=== PATIENT | female | born 1955 | race Asian ===

== ENCOUNTER 2019-10-04 07:06 | Emergency (ER) | payer MEDICARE, MEDICAID ==
[~2019-10-04] VITALS: Ht 162.6 cm; Wt 63.5 kg
[~2019-10-04 07:06] MED LIST: ALPR0.254 PO; LAM100T PO; PRE5T PO
[2019-10-04] MEDS ORDERED: ONDANSETRON HCL 4 MG/2 ML VIAL IV ONE (07:15)
[2019-10-04 07:41] LABS: Basophils # (auto) 0 uL; Basophils % (auto) 0.1 % (0.0-2.0); Eosinophils # (auto) 0 uL; Eosinophils % (auto) 0.1 % (0.0-7.0); Hematocrit 42.6 % (36.0-46.0); Hemoglobin 14.7 g/dL (12.2-16.2); Lymphocytes # (auto) 1.2 uL; Lymphocytes % (auto) 10.5 % (10.0-50.0); Mean Corpuscular Hemoglobin 31.7 pg (28.0-32.0); Mean Corpuscular Hgb Conc. 34.5 g/dL (32.0-36.0); Monocytes # (auto) 0.7 uL; Monocytes % (auto) 6.1 % (0.0-12.0); Neutrophils # (auto) 9.6 uL; Neutrophils % (auto) 83.2 % (37.0-80.0); Platelet Count (auto) 414 10^3/uL (140-450); Red Blood Cells 4.63 10^6/uL (4.0-5.20); Red Cell Distribution Width 12.6 % (11.8-14.3); White Blood Cell 11.6 10^3/uL (4.4-10.8)
[2019-10-04 07:56] LABS: INR 0.98 (0.9-1.15); Partial Thromboplastin Time 26.8 sec (23.64-32.05)
[2019-10-04 08:09] LABS: Albumin 4.2 g/dL (3.4-5.0); Anion Gap 8 (5-15); BUN/Creatinine Ratio 8.3; Blood Alcohol < 3.0 mg/dL (0-5); Blood Urea Nitrogen 6 mg/dL (7-18); Calcium 8.9 mg/dL (8.5-10.1); Carbon Dioxide 26 mmol/L (21-32); Chloride 91 mmol/L (98-107); GFR African American 105 mL/min; GFR Non-African American 86 mL/min; Glucose 141 mg/dL (74-106); Potassium 3.6 mmol/L (3.5-5.1); Salicylate < 1.7 mg/dL (2.8-20.0); Sodium 125 mmol/L (136-145)
[2019-10-04 08:10] LABS: Acetaminophen < 2.0 ug/mL (10-30)
[2019-10-04 08:14] LABS: Alanine Aminotransferase 20 U/L (13-56); Alkaline Phosphatase 97 U/L (45-117); Aspartate Aminotransferase 16 U/L (15-37); Bilirubin, Total 0.3 mg/dL (0.2-1.0); Total Protein 8.1 g/dL (6.4-8.2)
[2019-10-04] MEDS ORDERED: SODIUM CHLORIDE 0.9% 1,000 ML IV ONE ×2 (08:30→10:30)
[2019-10-04 09:25] LABS: Urine WBC None Seen /hpf (0 - 5)
[2019-10-04 09:45] LABS: Urine Bacteria NONE SEEN /hpf (None Seen); Urine Blood Negative /uL (Negative); Urine Specific Gravity 1.007 (1.001-1.035)
[2019-10-04 10:07] LABS: Alcohol, Urine < 3.0 mg/dL (0-5); Amphetamine Screen, Urine NEGATIVE (NEGATIVE); Barbiturate Scree,Urine NEGATIVE (NEGATIVE); Benzodiazephine Screen, Urine NEGATIVE (NEGATIVE); Cannabinoid Screen, Urine NEGATIVE (NEGATIVE); Cocaine Screen, Urine NEGATIVE (NEGATIVE); Opiate Scree,Urine NEGATIVE (NEGATIVE); Phencyclidine Screen, Urine NEGATIVE (NEGATIVE)
[2019-10-04 16:55] VITALS: BP 124/67
== END 2019-10-04 16:54 | disposition home or self-care (01) ==
LOC: EDBD 07:06 → ER 07:06
DX: R41.82 Altered mental status, unspecified (principal); T42.6X5A Adverse effect of other antiepileptic and sedative-hypnotic drugs, initial encounter; R11.2 Nausea with vomiting, unspecified; G92 Toxic encephalopathy; E78.5 Hyperlipidemia, unspecified; I10 Essential (primary) hypertension; Z88.6 Allergy status to analgesic agent; Y92.9 Unspecified place or not applicable
CPT/HCPCS: 36415; 70450; 71045; 80053; 80307; 80320; 80329; 81001; 83735; 84484; 85025; 85610; 85730; 93005; 96361; 96374; 99285; J2405; J7030

== ENCOUNTER 2024-06-09 18:23 | Inpatient (IN) | payer MEDICARE, MEDICAID ==
[~2024-06-09] VITALS: Ht 149.9 cm; Wt 57.2 kg
--- NOTE | 2024-06-09 18:34 | ED.PDOC ---
GI ASSESSMENT HPI Comments HPI: Poor Historian. 68-year-old female accompanied by his spouse. Patient presents to the emergency department for evaluation of one day history unable to urinate in 4-5 days of unable to have a bowel movement. Denies any associated abdominal pain nausea vomiting or diarrhea. Patient is nontoxic in appearance. Patient recently has been seen by a doctor increased her depression medication an anxiety medication. Past Medcial History: Anxiety, depression, hypertension, hyperlipidemia, bipolar Past Surgical History: Denies REVIEW OF SYSTEMS: CONSTITUTIONAL: Denies acute: fever, diaphoresis, chills, HEAD: Denies acute: headache, photophobia Eyes: Denies acute: Double vision, vision loss, eye pain, eye discharge. EARS: Denies acute: tinnitus, hearing loss, ear discharge, ear pain, THROAT: Denies acute: sore throat, swelling, difficulty swallowing , pain with swallowing, change in voice. NECK: Denies acute: neck pain, neck swelling, stiff neck. HEART: Denies acute : chest pain, palpitations, LUNGS: Denies acute: SOB, wheezing, cough, hemoptysis ABDOMEN: Denies acute: abdominal pain, Nausea, Vomiting, diarrhea, melena , hematemesis, hematochezia SKIN: Denies acute: rash, redness, lesions, itchiness. EXTREMITIES: Denies acute: calf pain, numbness, tingling, weakness, denies pain in extremity. Denies acute: Low back pain. Neuro: Denies acute: focal neurological deficit, motor or sensory focal neurological deficit, tremors, seizure like activity, confusion, dizziness, change in mental status, loss of bowel or bladder function, cauda equina like symptoms. : Denies acute: dysuria, hematuria, flank pain, increase in urinary frequency. PSYCH: Denies acute: hallucination, suicidal ideation, homicidal ideation. FEMALE: Denies acute: abnormal vaginal bleeding, foul odor, unusual discharge. PHYSICAL EXAM: General: no acute distress, awake and alert. Head: normocephalic, atraumatic. Neck: supple, trachea is midline, no swelling. Throat: Normal phonation. Eyes:, no erythema, no purulent discharge, no proptosis, no icterus. Heart: regular rate, regular rhythm, no significant murmur appreciated. Lungs: no apparent respiratory distress, Able to speak in full sentences. No wheezing, no rhonchi, no crackles. No stridors Clear to auscultation bilaterally. Abdomen: non tender to palpation, non distended, soft, no guarding, no rebound, + bowel sounds. Neuro: Awake, Alert, oriented to name, self, situation, follows commands GCS=15. Speech is normal. Skin: no petechia, no purpura, no cyanosis, non-pale, not jaundice. Lower extremities: --no - Pitting edema no deformity, no focal swelling, no calf TTP. Makes eye contact. moves all four extremities. Face: no apparent facial droop. Ambulating in the ED independently. Time Seen by MD: 18:26 Primary Care Provider: [facility] Reviewed Notes: Nurses Notes, Medications, Allergies Allergies: Coded Allergies: Codeine (Verified Allergy, Unknown, 03/22/17) Home Meds Active Scripts Lamotrigine (LAMICTAL) 100 Mg Tab, 300 MG PO HS, #30 TAB Prov:ANA GREENBERG MD 03/22/17 Reported Medications Prednisone (PREDNISONE) 5 Mg Tb, 50 MG PO DAILY for 2 Days 03/22/17 Alprazolam (Alprazolam) 0.25 Mg Tab, 1 TAB PO BID PRN for ANXIETY, #60 TAB 03/22/17 Information Source: Patient, Spouse Past Medical History PAST MEDICAL HISTORY: High Lipids, HTN Surgical History: Denies all surgeries [employer] History: No Pertinent [employer] History Family History Family History: Reviewed,noncontributory to illness Social History Smoker: Non-Smoker Alcohol: Denies ETOH Use Drugs: Denies Drug Use Lives In: Home GI differential Dx Differential Diagnosis: Other (Includes but not limited to thyroid disease, en cephalopathy, electrolyte abnormality, sepsis, infection, intracranial pathology, drug adverse effects, arrhythmia, kidney insufficiency, ACS, CVA, malignancy, anemia) X-Ray, Labs, Meds, VS Vital Signs Date Time Temp Pulse Resp B/P (MAP) Pulse Ox O2 Delivery O2 Flow Rate FiO2 06/09/24 18:45 98.8 103 16 157/85 (109) 97 Lab Test 06/09/24 19:40 06/09/24 18:36 06/09/24 18:35 Range/Units Troponin I High Sensitivity 22 22 </=34 ng/L White Blood Count 10.8 4.4-10.8 10^3/uL Red Blood Count 4.65 4.0-5.20 10^6/uL Hemoglobin 14.8 12.2-16.2 g/dL Hematocrit 42.3 36.0-46.0 % Mean Corpuscular Volume 91.0 80.0-100.0 fL Mean Corpuscular Hemoglobin 31.8 28.0-32.0 pg Mean Corpuscular Hemoglobin Concent 34.9 32.0-36.0 g/dL Red Cell Distribution Width 12.9 11.8-14.3 % Platelet Count 495 H 140-450 10^3/uL Mean Platelet Volume 6.2 L 6.9-10.8 fL Neutrophils (%) (Auto) 81.3 H 37.0-80.0 % Lymphocytes (%) (Auto) 9.8 L 10.0-50.0 % Monocytes (%) (Auto) 8.7 0.0-12.0 % Eosinophils (%) (Auto) 0.1 0.0-7.0 % Basophils (%) (Auto) 0.1 0.0-2.0 % Neutrophils # (Auto) 8.7 H 1.6-8.6 10 ^3/uL Lymphocytes # (Auto) 1.1 0.4-5.4 10 ^3/uL Monocytes # (Auto) 0.9 0-1.3 10 ^3/uL Eosinophils # (Auto) 0 0-0.8 10 ^3/uL Basophils # (Auto) 0 0-0.2 10 ^3/uL Nucleated Red Blood Cells 0.1 % Sodium Level 122 L 136-145 mmol/L Potassium Level 3.8 3.5-5.1 mmol/L Chloride Level 93 L 98-107 mmol/L Carbon Dioxide Level 24 20-31 mmol/L Anion Gap 5 5-15 Blood Urea Nitrogen 8 L 9-23 mg/dL Creatinine 0.75 0.550-1.02 mg/dL Glomerular Filtration Rate Calc 86 >90 mL/min BUN/Creatinine Ratio 10.7 10.0-20.0 Serum Glucose 181 H 74-106 mg/dL Lactic Acid Level 1.8 0.4-2.0 mmol/L Calcium Level 10.7 H 8.7-10.4 mg/dL Magnesium Level 2.3 1.6-2.6 mg/dL Total Bilirubin 0.7 0.2-1.0 mg/dL Aspartate Amino Transferase (AST) 17 13-40 U/L Alanine Aminotransferase (ALT) 23 7-40 U/L Alkaline Phosphatase 91 46-116 U/L Total Protein 7.9 5.7-8.2 g/dL Albumin 5.4 H 3.2-4.8 g/dL Urine Color Yellow Yellow Urine Clarity Turbid H Clear Urine pH 6.0 5.0-9.0 Urine Specific [place] 1.020 1.001-1.035 Urine Protein 1+ H Negative Urine Ketones 2+ H Negative Urine Blood 2+ H Negative /uL Urine Nitrite Negative Negative Urine Bilirubin Negative Negative Urine Urobilinogen Normal Negative mg/dL Urine Leukocyte Esterase Negative Negative /uL Urine RBC 17 0 - 4 /hpf Urine WBC 1 0 - 5 /hpf Urine Squamous Epithelial Cells Mod <5 /hpf Urine Calcium Oxalate Crystals Mod None Seen Urine Bacteria None seen None Seen /hpf Urine Mucus Few None Seen Urine Glucose 1+ H Normal mg/dL EXAM: XY CHEST PORTABLE TECHNIQUE: Single frontal chest radiograph CLINICAL HISTORY: mental health COMPARISON: CHEST PORTABLE on DOS: 10/04/19 Findings/Impression: Frontal chest radiograph demonstrates no acute osseous or superficial soft tissue abnormalities. The trachea is midline. The cardiac silhouette and mediastinum are within normal limits. No pneumothorax, pleural effusions, or consolidations. [place] [id number] Ph: [phone] DIAGNOSTIC IMAGING Diagnostic Imaging Report : [id number] Signed PATIENT: MAXINE VEGA ACCT: [id number] UNIT: [id number] : 1955 LOC: ER ROOM / BED: / AGE / SEX: 68 / F ADM STATUS: REG ER SERVICE 25 ORDERING PHYSICIAN: KASSIDY JIM DO PROCEDURE(s): CXRP - CHEST PORTABLE REASON: mental health ORDER NUMBER(s): [id number], ACCESSION NUMBER(s): [id number] EXAM: XY CHEST PORTABLE TECHNIQUE: Single frontal chest radiograph CLINICAL HISTORY: mental health COMPARISON: CHEST PORTABLE on DOS: 10/04/19 Findings/Impression: Frontal chest radiograph demonstrates no acute osseous or superficial soft tissue abnormalities. The trachea is midline. The cardiac silhouette and mediastinum are within normal limits. No pneumothorax, pleural effusions, or consolidations. ATED BY: ABBIE TINOCO DO DICTATED DATE/TIME: 06/09/241903 SIGNED BY: ABBIE TINOCO DO SIGNED DATE/TIME: 06/09/241903 CC: [place] [id number] Ph: [phone] DIAGNOSTIC IMAGING Diagnostic Imaging Report : [id number] Signed PATIENT: MAXINE VEGA ACCT: [id number] UNIT: [id number] : 1955 LOC: ER ROOM / BED: / AGE / SEX: 68 / F ADM STATUS: REG ER SERVICE 30 ORDERING PHYSICIAN: KASSIDY JIM DO PROCEDURE(s): ABPL - CT AB PEL WO CON-NO ORAL OR IV REASON: no BM not able to urinate ORDER NUMBER(s): [id number], ACCESSION NUMBER(s): [id number] Exam: CT CT AB PEL WO CON-NO ORAL OR IV History: no BM not able to urinate Comparison Study: None TECHNIQUE: Multidetector CT of the abdomen and pelvis was performed from lung bases to pubic symphysis. Imaging was performed without IV contrast. Axial, coronal, and sagittal multiplanar reformats were obtained from the axial data set by the technologist. RADIATION DOSE: DLP 289.01 mGy.cm; CTDI vol 6.02 mGy. Findings: Limited evaluation given noncontrast technique. Lungs: The lung bases are clear. Heart: The visualized heart is unremarkable. No cardiomegaly or pericardial effusion. Liver: Unremarkable. Gallbladder: Unremarkable. Spleen: Unremarkable Pancreas: Unremarkable Adrenals: Unremarkable Kidneys: Unremarkable GI tract: Unremarkable. Moderate fecal burden. : The urinary bladder is decompressed. Vasculature: Unremarkable Lymphadenopathy: Absent Peritoneum: No ascites Musculoskeletal: Mild multilevel degenerative changes of the thoracolumbar spine. Grade 1 anterolisthesis of L4 on L5. Soft tissues: Unremarkable Impression: 1. Limited evaluation given noncontrast technique. 2. No definite acute abdominopelvic abnormalities. 3. Moderate fecal burden. 4. Urinary bladder is decompressed. ATED BY: ABBIE TINOCO DO DICTATED DATE/TIME: 06/09/241917 SIGNED BY: ABBIE TINOCO DO SIGNED DATE/TIME: 06/09/241917 CC: Time of 1ST Reevaluation: 20:00 Reevaluation 1ST: Improved Patient Education/Counseling: Diagnosis, Treatment Family Education/Counseling: Diagnosis, Treatment Comments Patient presented with the above HPI.--urinary complaints and generalized weakness----workup was initiated. patient was found with the above mentioned diagnosis. Patient was given: Normal saline fluid bolus Patient ED course and VS have been stabilized. Patient has been reassessed in the ED and remained in a stable condition. Pertinent incidental findings were discussed with the patient and/or family. Patient/family voices understanding and is agreeable with plan. Patient has been observed in the ED adequate length of time to insure improvement/stability. patient was admitted to the medicine team for further evaluation and treatment of their presentation. All the reports of any imaging studies that were ordered by myself were reviewed by myself. Departure 1 Departure Time of Disposition: 20:30 Impression: Primary Impression: Hyponatremia Additional Impression: Constipation Disposition: ADMITTED INPATIENT Admit to: Tele Condition: Guarded Discharged With: Self Critical Care Note Critical Care Time?: Yes (35 min-critical care time only) I personally scribed for KASSIDY JIM DO ([email or web address]) on 06/09/24 at 18:34. Electr onically submitted by Yifan Talbert ([email or web address]). I personally scribed for KASSIDY JIM DO ([email or web address]) on 06/09/24 at 19:21. El ectronically submitted by Yifan Talbert ([email or web address]). KASSIDY JIM DO Jun 09, 2024 18:34
[2024-06-09 18:56] LABS: Basophils # (auto) 0 10 ^3/uL (0-0.2); Basophils % (auto) 0.1 % (0.0-2.0); Eosinophils # (auto) 0 10 ^3/uL (0-0.8); Eosinophils % (auto) 0.1 % (0.0-7.0); Hematocrit 42.3 % (36.0-46.0); Hemoglobin 14.8 g/dL (12.2-16.2); Lymphocytes # (auto) 1.1 10 ^3/uL (0.4-5.4); Lymphocytes % (auto) 9.8 % (10.0-50.0); Mean Corpuscular Hemoglobin 31.8 pg (28.0-32.0); Mean Corpuscular Hgb Conc. 34.9 g/dL (32.0-36.0); Monocytes # (auto) 0.9 10 ^3/uL (0-1.3); Monocytes % (auto) 8.7 % (0.0-12.0); Neutrophils # (auto) 8.7 10 ^3/uL (1.6-8.6); Neutrophils % (auto) 81.3 % (37.0-80.0); Nucleated Red Blood Cells % 0.1 %; Platelet Count (auto) 495 10^3/uL (140-450); Red Blood Cells 4.65 10^6/uL (4.0-5.20); Red Cell Distribution Width 12.9 % (11.8-14.3); White Blood Cell 10.8 10^3/uL (4.4-10.8)
--- NOTE | 2024-06-09 19:06 | DVH ---
EXAM: XY CHEST PORTABLE TECHNIQUE: Single frontal chest radiograph CLINICAL HISTORY: mental health COMPARISON: CHEST PORTABLE on DOS: 10/04/19 Findings/Impression: Frontal chest radiograph demonstrates no acute osseous or superficial soft tissue abnormalities. The trachea is midline. The cardiac silhouette and mediastinum are within normal limits. No pneumothorax, pleural effusions, or consolidations.
[2024-06-09 19:07] LABS: Alanine Aminotransferase 23 U/L (7-40); Albumin 5.4 g/dL (3.2-4.8); Alkaline Phosphatase 91 U/L (46-116); Anion Gap 5 (5-15); Aspartate Aminotransferase 17 U/L (13-40); BUN/Creatinine Ratio 10.7 (10.0-20.0); Blood Urea Nitrogen 8 mg/dL (9-23); Calcium 10.7 mg/dL (8.7-10.4); Carbon Dioxide 24 mmol/L (20-31); Chloride 93 mmol/L (98-107); Glucose 181 mg/dL (74-106); Magnesium 2.3 mg/dL (1.6-2.6); Potassium 3.8 mmol/L (3.5-5.1); Sodium 122 mmol/L (136-145)
[2024-06-09 19:08] LABS: Bilirubin, Total 0.7 mg/dL (0.2-1.0); Total Protein 7.9 g/dL (5.7-8.2)
--- NOTE | 2024-06-09 19:20 | DVH ---
Exam: CT CT AB PEL WO CON-NO ORAL OR IV History: no BM not able to urinate Comparison Study: None TECHNIQUE: Multidetector CT of the abdomen and pelvis was performed from lung bases to pubic symphysi s. Imaging was performed without IV contrast. Axial, coronal, and sagittal multiplanar reformats were obtained from the axial data set by the technologist. RADIATION DOSE: DLP 289.01 mGy.cm; CTDI vol 6.02 mGy. Findings: Limited evaluation given noncontrast technique. Lungs: The lung bases are clear. Heart: The visualized heart is unremarkable. No cardiomegaly or pericardial effusion. Liver: Unremarkable. Gallbladder: Unremarkable. Spleen: Unremarkable Pancreas: Unremarkable Adrenals: Unremarkable Kidneys: Unremarkable GI tract: Unremarkable. Moderate fecal burden. : The urinary bladder is decompressed. Vasculature: Unremarkable Lymphadenopathy: Absent Peritoneum: No ascites Musculoskeletal: Mild multilevel degenerative changes of the thoracolumbar spine. Grade 1 anterolisth esis of L4 on L5. Soft tissues: Unremarkable Impression: 1. Limited evaluation given noncontrast technique. 2. No definite acute abdominopelvic abnormalities. 3. Moderate fecal burden. 4. Urinary bladder is decompressed.
[2024-06-09 19:23] LABS: Urine Bacteria None Seen /hpf (None Seen)
[2024-06-09 20:00] LABS: Urine Blood 2+ /uL (Negative); Urine Clarity Turbid (Clear); Urine Color Yellow (Yellow); Urine Mucus FEW (None Seen); Urine Protein, UAD 1+ (Negative); Urine Urobilinogen Normal (Negative); Urine WBC 1 /hpf (0 - 5)
[2024-06-09] MEDS ORDERED: ENOXAPARIN SOD 40 MG/0.4 ML SYRINGE SC SCH (22:45)
[2024-06-09] MEDS ORDERED: ONDANSETRON HCL 4 MG/2 ML VIAL IV PRN (22:45)
[2024-06-09] MEDS ORDERED: NITROGLYCERIN 0.4 MG SL TAB SL PRN (22:45)
[2024-06-09] MEDS ORDERED: ACETAMINOPHEN 325 MG TAB PO PRN (22:45)
[2024-06-09] MEDS ORDERED: MORPHINE SULFATE INJ 2 MG/ml SYRG IV PRN ×2 (22:45→23:00)
[2024-06-09] MEDS ORDERED: ALPRAZolam 0.25 MG TAB PO PRN (23:00)
--- NOTE | 2024-06-09 23:13 | DVHHPRES ---
History of Present Illness Resident Creating Document: OLEG NOYOLA RESIDENT History of Present Illness MAXINE VEGA is a 68 years old female with a PMH of anxiety, depression, bipolar, HTN, HLD, type 2 DM presented to the ED along with her with the chief complaints of difficulty in defecation since 2 days prior to admission and difficulty in micturition since on the day of admission. Per , patient is not eating or drink well since to 3 days and she has been feeling like something stuck in her throat. On my assessment patient denies nausea, vomiting, fever, diarrhea, abdominal pain, chest pain, dizziness, headache, and other acute symptoms. Patient recently has been seen by a doctor increased her depression medication and anxiety medication. Past Medical History anxiety, depression, bipolar, HTN, HLD, type 2 DM Past Surgical History Denies Family History Denies Past Social History Lives with . Denies smoking, alcohol and other drug abuse Review of Systems Constitutional: No: Fever, Chills, Sweats, Weakness, Malaise, Other Eyes: No: Pain, Vision change, Conjunctivae inflammation, Eyelid inflammation, Other, Redness ENT: No: Ear pain, Ear discharge, Nose pain, Nose discharge, Nose congestion, Mouth pain, Mouth swelling, Throat pain, Throat swelling, Other Respiratory: No: Cough, Dry, Shortness of breath, SOB with excertion, Wheezing, Hemoptysis, Pleuritic Pain, Sputum, Wheezing, Other Cardiovascular: No: Chest Pain, Palpitations, Orthopnea, Paroxysmal Noc. Dyspnea, Edema, Lt Headedness, Other Gastrointestinal: Constipation Genitourinary: Incontinence Musculoskeletal: No: other, neck pain, shoulder pain, arm pain, back pain, hand pain, leg pain, foot pain Skin: No: Rash, Lesions, Jaundice, Bruising, Other Neurological: No: Weakness, Numbness, Incoordination, Change in speech, Confusion, Seizures, Other Allergies: Coded Allergies: Codeine (Verified Allergy, Unknown, 03/22/17) Medications Current Medications Medications Dose Ordered Sig/Mac Route Start Time Stop Time Status Last Admin Dose Admin Sodium Chloride 10 ml Q8HR IV 06/10/24 06:00 Acetaminophen 325 mg Q4HP PRN PO 06/09/24 22:45 Ondansetron HCl 4 mg Q4HP PRN IV 06/09/24 22:45 Enoxaparin Sodium 40 mg DAILY SC 06/09/24 22:45 Nitroglycerin 0.4 mg Q5MINP PRN SL 06/09/24 22:45 Morphine Sulfate 2 mg Q30M PRN IV 06/09/24 22:45 UNV Alprazolam 0.25 mg BID PRN PO 06/09/24 23:00 Lamotrigine 300 mg HS PO 06/10/24 22:00 Exam Vital Signs Vital Signs Date Time Temp Pulse Resp B/P (MAP) Pulse Ox O2 Delivery O2 Flow Rate FiO2 06/09/24 18:45 98.8 103 16 157/85 (109) 97 General Appearance: Alert, Oriented X3, Cooperative, No acute distress HEENT: Atraumatic, PERRLA, EOMI, Mucous membr. moist/pink Respiratory: Clear to auscultation, Normal air movement Cardiovascular: Regular rate, Normal S1, Normal S2, No murmurs Abdominal: Normal bowel sounds, Soft, No tenderness, No hepatospenomegaly Extremities: No clubbing, No cyanosis, No edema, Normal pulses Skin: No significant lesion Neuro: Normal gait, Normal speech, Normal tone, Sensation intact Psych/Mental Status: Other (Flat affect) Labs/Xrays Labs Test 06/09/24 21:28 06/09/24 18:36 06/09/24 18:35 Range/Units Troponin I High Sensitivity 21 </=34 ng/L White Blood Count 10.8 4.4-10.8 10^3/uL Red Blood Count 4.65 4.0-5.20 10^6/uL Hemoglobin 14.8 12.2-16.2 g/dL Hematocrit 42.3 36.0-46.0 % Mean Corpuscular Volume 91.0 80.0-100.0 fL Mean Corpuscular Hemoglobin 31.8 28.0-32.0 pg Mean Corpuscular Hemoglobin Concent 34.9 32.0-36.0 g/dL Red Cell Distribution Width 12.9 11.8-14.3 % Platelet Count 495 H 140-450 10^3/uL Mean Platelet Volume 6.2 L 6.9-10.8 fL Neutrophils (%) (Auto) 81.3 H 37.0-80.0 % Lymphocytes (%) (Auto) 9.8 L 10.0-50.0 % Monocytes (%) (Auto) 8.7 0.0-12.0 % Eosinophils (%) (Auto) 0.1 0.0-7.0 % Basophils (%) (Auto) 0.1 0.0-2.0 % Neutrophils # (Auto) 8.7 H 1.6-8.6 10 ^3/uL Lymphocytes # (Auto) 1.1 0.4-5.4 10 ^3/uL Monocytes # (Auto) 0.9 0-1.3 10 ^3/uL Eosinophils # (Auto) 0 0-0.8 10 ^3/uL Basophils # (Auto) 0 0-0.2 10 ^3/uL Nucleated Red Blood Cells 0.1 % Sodium Level 122 L 136-145 mmol/L Potassium Level 3.8 3.5-5.1 mmol/L Chloride Level 93 L 98-107 mmol/L Carbon Dioxide Level 24 20-31 mmol/L Anion Gap 5 5-15 Blood Urea Nitrogen 8 L 9-23 mg/dL Creatinine 0.75 0.550-1.02 mg/dL Glomerular Filtration Rate Calc 86 >90 mL/min BUN/Creatinine Ratio 10.7 10.0-20.0 Serum Glucose 181 H 74-106 mg/dL Lactic Acid Level 1.8 0.4-2.0 mmol/L Calcium Level 10.7 H 8.7-10.4 mg/dL Magnesium Level 2.3 1.6-2.6 mg/dL Total Bilirubin 0.7 0.2-1.0 mg/dL Aspartate Amino Transferase (AST) 17 13-40 U/L Alanine Aminotransferase (ALT) 23 7-40 U/L Alkaline Phosphatase 91 46-116 U/L Total Protein 7.9 5.7-8.2 g/dL Albumin 5.4 H 3.2-4.8 g/dL Urine Color Yellow Yellow Urine Clarity Turbid H Clear Urine pH 6.0 5.0-9.0 Urine Specific [place] 1.020 1.001-1.035 Urine Protein 1+ H Negative Urine Ketones 2+ H Negative Urine Blood 2+ H Negative /uL Urine Nitrite Negative Negative Urine Bilirubin Negative Negative Urine Urobilinogen Normal Negative mg/dL Urine Leukocyte Esterase Negative Negative /uL Urine RBC 17 0 - 4 /hpf Urine WBC 1 0 - 5 /hpf Urine Squamous Epithelial Cells Mod <5 /hpf Urine Calcium Oxalate Crystals Mod None Seen Urine Bacteria None seen None Seen /hpf Urine Mucus Few None Seen Urine Glucose 1+ H Normal mg/dL Assessment/Plan Assessment/Plan # Hyponatremia likely medication induced # Rule out? SIADH - sodium level 122, decrease in serum osmolality - monitor lab - given 1 bag NS - urine studies showed low urinary sodium # Constipation - CT abdominal pelvis showed no definite acute abnormalities but moderate feceas - given lactulose 30 # controlled hypertension -continues monitor BP -resume home med -hydralazine 10 mg p.o. # depression no suicidal or homicidal ideation -continue home meds # HLD - continue home meds # type 2 DM HbA1c 5.5 -continuously monitor -consider mild ISS if needed Lovenox No GIB ppx Regular Diet for now reconcile home meds Goals of care discussed with the patient for more than 27 minutes: Full code status Case management discussed with Dr. Brown, patient and nurse Plan discussed with: Patient, Spouse, Other (nurse) My Orders Orders - OLEG NOYOLA RESIDENT Procedure Category Date Status Time Admit ADMIT 06/09/24 Transmitted 22:42 Allergies ONESIMO 06/09/24 In Process 22:42 Code Status CODE 06/09/24 Transmitted 22:42 2 Gm Sodium Diet DIET 06/10/24 Transmitted Breakfast Sodium Chloride Lock PHA 06/10/24 In Process (Saline Lock Ns) 06:00 Acetaminophen Tablet PHA 06/09/24 In Process (Tylenol Tablet) 22:45 Ondansetron Hcl PHA 06/09/24 In Process (Zofran) 22:45 Complete Blood Count LAB 06/10/24 Verified 04:00 Comprehensive LAB 06/10/24 Verified Metabolic Panel 04:00 Enoxaparin Sodium PHA 06/09/24 In Process (Lovenox) 22:45 Nitroglycerin PHA 06/09/24 In Process Sublingual (Ntrostat 22:45 Morphine Sulfate PHA 06/09/24 Pending Injection 22:45 Oxygen By Nasal RT 06/09/24 Transmitted Cannula 22:42 Stat Ekg For Chest ONESIMO 06/09/24 In Process Pain 22:42 Notify Of Changes ONESIMO 06/09/24 In Process From Base 22:42 Can Runner For ONESIMO 06/09/24 In Process 24 Hours 22:42 Emergency Dysrhythmia ONESIMO 06/09/24 In Process Protocol 22:42 Rhythm Strips Once ONESIMO 06/09/24 In Process Every Shift 22:42 Drug Screen LAB 06/09/24 In Process 22:42 Hemoglobin A1c LAB 06/09/24 In Process 22:42 Thyroid Stimulating LAB 06/09/24 In Process Hormone 22:42 Vitamin B12 LAB 06/09/24 In Process 22:42 Vitamin D, 25-Hydroxy LAB 06/09/24 In Process 22:42 Alprazolam Tablet PHA 06/09/24 In Process (Xanax Tablet) 23:00 Lamotrigine Tablet PHA 06/10/24 In Process (Lamictal Tablet) 22:00 Osmolality Urine LAB 06/09/24 In Process 22:49 Urine Creatinine LAB 06/09/24 In Process 22:49 Urine Potassium LAB 06/09/24 In Process 22:49 Urine Protein LAB 06/09/24 In Process 22:49 Urine Sodium LAB 06/09/24 In Process 22:49 Urine LAB 06/09/24 In Process Protein/Creatinine Osmolality, Serum LAB 06/09/24 In Process 22:49 Date of Service: Jun 09, 2024 Billing Provider: SHANUA BROWN MD Common Visit Codes: 95715-BBLXZXC INP/OBS CARE (HIGH) Secondary Visit Codes: 21585-[id number] CARE PLAN 30 MINUTES OLEG NOYOLA RESIDENT Jun 09, 2024 23:13 SHAUNA BROWN MD Jun 10, 2024 09:52
[2024-06-09 23:52] LABS: Protein, Urine 95.5 mg/dL (1-14)
[2024-06-09 23:54] LABS: Amphetamine Screen, Urine Neg (NEGATIVE); Barbiturate Scree,Urine Neg (NEGATIVE); Benzodiazephine Screen, Urine Neg (NEGATIVE)
[2024-06-09 23:55] LABS: Cannabinoid Screen, Urine Neg (NEGATIVE); Cocaine Screen, Urine Neg (NEGATIVE); Creatinine, Urine 182.6 mg/dL (30.0-125.0); Opiate Scree,Urine Neg (NEGATIVE); Phencyclidine Screen, Urine Neg (NEGATIVE)
[2024-06-10] MEDS: SODIUM CHLORIDE 0.9% 1,000 ML IV ONE (01:02)
[2024-06-10] MEDS: ENOXAPARIN SOD 40 MG/0.4 ML SYRINGE SC SCH (01:08)
[2024-06-10] MEDS ORDERED: hydrALAZINE HCL 20 MG/ML VL IV PRN (01:45)
[2024-06-10] MEDS: LACTULOSE 20Gm/30ML SOLN PO ONE (02:04)
[2024-06-10] MEDS: amLODIPine BESYLATE 5 MG TAB PO ONE (02:05)
[2024-06-10 04:35] VITALS: RESP 18
[2024-06-10 06:16] LABS: Chloride 102 mmol/L (98-107); Potassium 3.4 mmol/L (3.5-5.1)
[2024-06-10 06:17] LABS: Anion Gap 5 (5-15); Calcium 9.5 mg/dL (8.7-10.4); Carbon Dioxide 23 mmol/L (20-31)
[2024-06-10 06:22] LABS: BUN/Creatinine Ratio 12.7 (10.0-20.0); Blood Urea Nitrogen 7 mg/dL (9-23); Glucose 100 mg/dL (74-106)
[2024-06-10] MEDS: SODIUM CHLOR 0.9% PF (SALINE LOCK) 10ML VIAL/SYR IV SCH (06:23)
[2024-06-10 06:27] LABS: Free T4 (Free Thyroxine) 1.33 ng/dL (0.89-1.76); T3 Total 0.93 ng/mL (0.60-1.81)
[2024-06-10 06:36] LABS: Sodium 130 mmol/L (136-145)
[2024-06-10 07:42] LABS: Basophils # (auto) 0 10 ^3/uL (0-0.2); Basophils % (auto) 0.2 % (0.0-2.0); Eosinophils # (auto) 0 10 ^3/uL (0-0.8); Eosinophils % (auto) 0.2 % (0.0-7.0); Hematocrit 37.8 % (36.0-46.0); Hemoglobin 13.2 g/dL (12.2-16.2); Lymphocytes % (auto) 11.6 % (10.0-50.0); Mean Corpuscular Hemoglobin 32.1 pg (28.0-32.0); Mean Corpuscular Volume 91.7 fL (80.0-100.0); Monocytes % (auto) 11.2 % (0.0-12.0); Neutrophils # (auto) 6.6 10 ^3/uL (1.6-8.6); Neutrophils % (auto) 76.8 % (37.0-80.0); Platelet Count (auto) 414 10^3/uL (140-450); Red Blood Cells 4.12 10^6/uL (4.0-5.20); Red Cell Distribution Width 13.1 % (11.8-14.3); White Blood Cell 8.6 10^3/uL (4.4-10.8)
[2024-06-10 09:10] LABS: Alanine Aminotransferase 26 U/L (7-40); Albumin 4.6 g/dL (3.2-4.8); Alkaline Phosphatase 82 U/L (46-116); Anion Gap 7 (5-15); Aspartate Aminotransferase 18 U/L (13-40); BUN/Creatinine Ratio 9.8 (10.0-20.0); Bilirubin, Total 0.5 mg/dL (0.2-1.0); Blood Urea Nitrogen 6 mg/dL (9-23); Calcium 9.8 mg/dL (8.7-10.4); Carbon Dioxide 25 mmol/L (20-31); Chloride 99 mmol/L (98-107); Glucose 103 mg/dL (74-106); Potassium 3.7 mmol/L (3.5-5.1); Sodium 131 mmol/L (136-145)
[2024-06-10 09:21] VITALS: BP 120/64; PULSE 83; TEMP 97.6; O2SAT 98
[2024-06-10] MEDS: LOSARTAN POTASSIUM 50 MG TAB PO SCH (10:06)
[2024-06-10 10:20] VITALS: RESP 20
--- NOTE | 2024-06-10 17:07 | DVHDSRES ---
Discharge Summary Date of Admission Resident Creating Document: TERA LYN Jun 09, 2024 at 22:48 Date of Discharge: Jun 10, 2024 Admitting Diagnosis Depression Labs/Diagnostic Data: Laboratory Results Test 06/10/24 08:39 06/10/24 05:42 06/09/24 21:28 06/09/24 18:36 Sodium Level 131 mmol/L (136-145) Potassium Level 3.7 mmol/L (3.5-5.1) Chloride Level 99 mmol/L (98-107) Carbon Dioxide Level 25 mmol/L (20-31) Anion Gap 7 (5-15) Blood Urea Nitrogen 6 mg/dL (9-23) Creatinine 0.61 mg/dL (0.550-1.02) Glomerular Filtration Rate Calc 97 mL/min (>90) BUN/Creatinine Ratio 9.8 (10.0-20.0) Serum Glucose 103 mg/dL (74-106) Calcium Level 9.8 mg/dL (8.7-10.4) Total Bilirubin 0.5 mg/dL (0.2-1.0) Aspartate Amino Transferase (AST) 18 U/L (13-40) Alanine Aminotransferase (ALT) 26 U/L (7-40) Alkaline Phosphatase 82 U/L (46-116) Total Protein 7.0 g/dL (5.7-8.2) Albumin 4.6 g/dL (3.2-4.8) White Blood Count 8.6 10^3/uL (4.4-10.8) Red Blood Count 4.12 10^6/uL (4.0-5.20) Hemoglobin 13.2 g/dL (12.2-16.2) Hematocrit 37.8 % (36.0-46.0) Mean Corpuscular Volume 91.7 fL (80.0-100.0) Mean Corpuscular Hemoglobin 32.1 pg (28.0-32.0) Mean Corpuscular Hemoglobin Concent 35.0 g/dL (32.0-36.0) Red Cell Distribution Width 13.1 % (11.8-14.3) Platelet Count 414 10^3/uL (140-450) Mean Platelet Volume 6.7 fL (6.9-10.8) Neutrophils (%) (Auto) 76.8 % (37.0-80.0) Lymphocytes (%) (Auto) 11.6 % (10.0-50.0) Monocytes (%) (Auto) 11.2 % (0.0-12.0) Eosinophils (%) (Auto) 0.2 % (0.0-7.0) Basophils (%) (Auto) 0.2 % (0.0-2.0) Neutrophils # (Auto) 6.6 10 ^3/uL (1.6-8.6) Lymphocytes # (Auto) 1.0 10 ^3/uL (0.4-5.4) Monocytes # (Auto) 1.0 10 ^3/uL (0-1.3) Eosinophils # (Auto) 0 10 ^3/uL (0-0.8) Basophils # (Auto) 0 10 ^3/uL (0-0.2) Nucleated Red Blood Cells 0.0 % Free Thyroxine (T4) Calculated 1.33 ng/dL (0.89-1.76) Total Triiodothyronine (TT3) 0.93 ng/mL (0.60-1.81) Urine Osmolality 540 mOsm/kg Serum Osmolality 256 mOsm/kg (278-298) Troponin I High Sensitivity 21 ng/L (</=34) Vitamin B12 Level 1561 pg/mL (211-911) Vitamin D 25-Hydroxy 57.5 ng/mL (30.0-100) Thyroid Stimulating Hormone (TSH) 0.46 uIU/mL (0.55-4.78) Hemoglobin A1c 5.5 % A1C (<5.7) Lactic Acid Level 1.8 mmol/L (0.4-2.0) Magnesium Level 2.3 mg/dL (1.6-2.6) Test 06/09/24 18:35 Urine Color Yellow (Yellow) Urine Clarity Turbid (Clear) Urine pH 6.0 (5.0-9.0) Urine Specific [place] 1.020 (1.001-1.035) Urine Protein 1+ (Negative) Urine Ketones 2+ (Negative) Urine Blood 2+ /uL (Negative) Urine Nitrite Negative (Negative) Urine Bilirubin Negative (Negative) Urine Urobilinogen Normal mg/dL (Negative) Urine Leukocyte Esterase Negative /uL (Negative) Urine RBC 17 /hpf (0 - 4) Urine WBC 1 /hpf (0 - 5) Urine Squamous Epithelial Cells Mod /hpf (<5) Urine Calcium Oxalate Crystals Mod (None Seen) Urine Bacteria None seen /hpf (None Seen) Urine Mucus Few (None Seen) Urine Creatinine 182.60 mg/dL (30.0-125.0) Urine Sodium 20 mmol/L (40-220) Urine Potassium 58 mmol/L (12-62) Urine Glucose 1+ mg/dL (Normal) Urine Total Protein 95.5 mg/dL (1-14) Urine Opiates Screen Neg (NEGATIVE) Urine Fentanyl Screen Neg (NEGATIVE) Urine Barbiturates Screen Neg (NEGATIVE) Urine Phencyclidine Screen Neg (NEGATIVE) Urine Amphetamines Screen Neg (NEGATIVE) Urine Benzodiazepines Screen Neg (NEGATIVE) Urine Cocaine Screen Neg (NEGATIVE) Urine Cannabinoids Screen Neg (NEGATIVE) Other Laboratory Tests 06/10/24 08:39 06/10/24 05:42 Brief Hx & Hospital Course: MAXINE VEGA is a 68-year-old female with a PMH of anxiety, depression, bipolar disorder, HTN, HLD, and type 2 DM. She presented to the ED along with her with the chief complaints of difficulty in defecation for 2 days prior to admission and difficulty in micturition on the day of admission. Per her , the patient has not been eating or drinking well for 3 days and has been feeling like something is stuck in her throat. On my assessment, the patient denies nausea, vomiting, fever, diarrhea, abdominal pain, chest pain, dizziness, headache, and other acute symptoms. The patient was recently seen by a doctor who increased her depression and anxiety medications. The patient was admitted to the hospital for evaluation of constipation. PMHx: Anxiety, depression, bipolar disorder, HTN, HLD, type 2 DM PSHx: Noncontributory Family history: Noncontributory Social history: Lives with . Denies smoking, alcohol, and other drug abuse Home medication: Lamotrigine, quetiapine, losartan, amlodipine Allergic history: Codeine, [place] On 06/10/2024, the patient was seen and examined at the bedside in the ED. She was alert, awake, and agitated. The patient was cooperative but had a flat affect. An abdominopelvic CT scan showed no definite acute abdominopelvic abnormalities. The chest X-ray was normal. Moderate fecal burden was noted. The urinary bladder is decompressed. A consultation for telepsychiatry was ordered, but the patient left AMA. Operations or Procedures [place] [address] Ph: [phone] DIAGNOSTIC IMAGING Diagnostic Imaging Report : [id number] Signed PATIENT: VEL VEGANEEACCT: [id number] UNIT: [id number] : 1955 LOC: ER ROOM / BED: / AGE / SEX: 68 / F ADM STATUS: REG ER SERVICE 30 ORDERING PHYSICIAN: KASSIDY JIM DO PROCEDURE(s): ABPL - CT AB PEL WO CON-NO ORAL OR IV REASON: no BM not able to urinate ORDER NUMBER(s): [id number], ACCESSION NUMBER(s): [id number] Exam: CT CT AB PEL WO CON-NO ORAL OR IV History: no BM not able to urinate Comparison Study: None TECHNIQUE: Multidetector CT of the abdomen and pelvis was performed from lung bases to pubic symphysis. Imaging was performed without IV contrast. Axial, coronal, and sagittal multiplanar reformats were obtained from the axial data set by the technologist. RADIATION DOSE: DLP 289.01 mGy.cm; CTDI vol 6.02 mGy. Findings: Limited evaluation given noncontrast technique. Lungs: The lung bases are clear. Heart: The visualized heart is unremarkable. No cardiomegaly or pericardial effusion. Liver: Unremarkable. Gallbladder: Unremarkable. Spleen: Unremarkable Pancreas: Unremarkable Adrenals: Unremarkable Kidneys: Unremarkable GI tract: Unremarkable. Moderate fecal burden. : The urinary bladder is decompressed. Vasculature: Unremarkable Lymphadenopathy: Absent Peritoneum: No ascites Musculoskeletal: Mild multilevel degenerative changes of the thoracolumbar spine. Grade 1 anterolisthesis of L4 on L5. Soft tissues: Unremarkable Impression: 1. Limited evaluation given noncontrast technique. 2. No definite acute abdominopelvic abnormalities. 3. Moderate fecal burden. 4. Urinary bladder is decompressed. ATED BY: ABBIE TINOCO DO DICTATED DATE/TIME: 06/09/241917 SIGNED BY: ABBIE TINOCO DO SIGNED DATE/TIME: 06/09/241917 CC: Condition at Discharge: Good Final Diagnosis/Problems List Hypoosmolar, hypovolemic hyponatremia SIADH could not rule out, patient left AMA Controlled hypertension Depression no suicidal or homicidal ideation HLD Type 2 DM HbA1c Discharge Disposition: Home Discharge Statement: "Patient was advised to return to the ER or call 911 if any headaches, dizziness, shortness of breath, chest pain, abdominal pain, bleeding, fevers, or worsening of medical condition. Patient was counseled about treatment plan, medications, possible side effects, patientverbalized understanding. All questions were answered to the best of my ability. This discharge took greater then 30 minutes in planning, reviewing documentation, counseling the patient, and discussing with other team members." ASSESSMENT ASSESSMENT Assessment Date of Service: Jun 10, 2024 Billing Provider: MATT JARVIS MD Common Visit Codes: 34056-FVR/OBS DISCH DAY >30min RIKIDARRENADELIA RESDIENT Jun 10, 2024 17:07 MATT JARVIS MD Jun 11, 2024 20:39
[2024-06-10] MEDS ORDERED: lamoTRIgine 100 MG TAB PO SCH (22:00)
[2024-06-11] MEDS ORDERED: amLODIPine BESYLATE 5 MG TAB PO SCH (10:00)
== END 2024-06-10 10:44 | disposition left against medical advice (07) | DRG 392 ==
LOC: ER 18:23 → OVERFLOW 22:48 → ER 22:57 → OVERFLOW 06-10 10:00
PROVIDERS: ADMIT Internal Medicine; ATTEND Internal Medicine
DX: K59.09 Other constipation (principal); E87.1 Hypo-osmolality and hyponatremia; I10 Essential (primary) hypertension; Z53.29 Procedure and treatment not carried out because of patient's decision for other reasons; F31.9 Bipolar disorder, unspecified; E78.5 Hyperlipidemia, unspecified; E11.9 Type 2 diabetes mellitus without complications; Z79.4 Long term (current) use of insulin; Z79.899 Other long term (current) drug therapy
CPT/HCPCS: 36415; 71045; 74176; 80048; 80053; 80307; 81001; 82306; 82570; 82607; 83036; 83605; 83735; 83930; 83935; 84133; 84156; 84300; 84439; 84443; 84480; 84484; 85025; G0378

== ENCOUNTER 2024-06-20 10:07 | Emergency (ER) | payer MEDICARE, MEDICAID ==
[~2024-06-20] VITALS: Ht 144.8 cm; Wt 57.3 kg
[2024-06-20 10:47] VITALS: PULSE 91; RESP 18; O2SAT 98
--- NOTE | 2024-06-20 11:09 | ED.PDOC ---
GI ASSESSMENT HPI Comments This is a 68-year-old female who comes to the ED with chief complain of constipation. She has a past medical history relevant for hypertension, hyperlipidemia, anxiety and depression. Patient stated that for the last two days she has been unable to have a bowel movement. She stated that the last one was a small amount, but well-formed, denies any hematochezia, melena. Patient stated feeling bloated, and having low appetite, but denies any nausea, vomiting, abdominal pain. She stated that her usual laxative medication is not longer working. Patient also states having losing weight in the last month, around 5 lb. She also mentions having night sweats for the last week. Patient was hospitalized here last week due to the same issue as well as hyponatremia, however she left AMA. Chief Complaint: Constipation Time Seen by MD: 10:20 Primary Care Provider: JENN Cifuentes Notes: Nurses Notes Allergies: Coded Allergies: Codeine (Verified Allergy, Unknown, 03/22/17) Home Meds Active Scripts Lamotrigine (LAMICTAL) 100 Mg Tab, 300 MG PO HS, #30 TAB Prov:ANA GREENBERG MD 03/22/17 Reported Medications Prednisone (PREDNISONE) 5 Mg Tb, 50 MG PO DAILY for 2 Days 03/22/17 Alprazolam (Alprazolam) 0.25 Mg Tab, 1 TAB PO BID PRN for ANXIETY, #60 TAB 03/22/17 Information Source: Patient Mode of Arrival: Ambulatory Timing: Days Duration: Since onset Past Medical History PAST MEDICAL HISTORY: High Lipids, HTN Surgical History: Denies all surgeries [employer] History: No Pertinent [employer] History Family History Family History: Reviewed,noncontributory to illness Social History Smoker: Non-Smoker Alcohol: Denies ETOH Use Drugs: Denies Drug Use Lives In: Home Constitutional: reports: sweats; denies: chills, diaphoresis, fatigue, fever, malaise, weakness, others EENTM: denies: blurred vision, double vision, ear bleeding, ear discharge, ear drainage, ear pain, ear ringing, eye pain, eye redness, hearing loss, mouth pain, mouth swelling, nasal discharge, nose bleeding, nose congestion, nose pain, photophobia, tearing, throat pain, throat swelling, voice changes, others Respiratory: denies: cough, hemoptysis, orthopnea, SOB at rest, shortness of breath, SOB with excertion, stridor, wheezing, others Cardiovascular: denies: chest pain, dizzy spells, diaphoresis, Dyspnea on exertion, edema, irregular heart beat, left arm pain, lightheadedness, palpitations, PND, syncope, others Gastrointestinal: reports: abdomen distended, constipated; denies: abdominal pain, blood streaked bowels, diarrhea, dysphagia, difficulty swallowing, hematemesis, melena, nausea, poor appetite, poor fluid intake, rectal bleeding, rectal pain, vomiting, others Genitourinary: denies: abnormal vagina bleeding, burning, dyspareunia, dysuria, flank pain, frequency, hematuria, incontinence, pain, , vagina discharge, urgency, others Neurological: denies: dizziness, fainting, headache, left sided numbness, left sided weakness, numbness, paresthesia, pre-existing deficit, right sided numbness, right sided weakness, seizure, speech problems, tingling, tremors, weakness, others Musculoskeletal: denies: back pain, gout, joint pain, joint swelling, muscle pain, muscle stiffness, neck pain, others Integumetry: denies: bruises, change in color, change in hair/nails, dryness, laceration, lesions, lumps, rash, wounds, others Hematologic/Lymphatic: denies: anemia, blood clots, easy bleeding, easy bruisin g, swollen glands, others Endocrine: denies: excessive hunger, excessive sweating, excessive thirst, excessive urination, flushing, intolerance to cold, intolerance to heat, unexplained weight gain, unexplained weight loss, others Psychiatric: denies: anxiety, bipolar disorder, depression, hopeless, panic disorder, schizophrenia, sleepless, suicidal, others Physical Exam General Appearance: No Apparent Distress, Normal HEENT: Normal ENT Inspection, Pharynx Normal, TMs Normal Neck: Full Range of Motion, Non-Tender, Normal, Normal Inspection Respiratory: Chest Non-Tender, Lungs Clear, No Accessory Muscle Use, No Respir atory Distress, Normal Breath Sounds Cardiovascular: No Edema, No JVD, No Murmur, No Gallop, Normal Peripheral Pulses, Regular Rate/Rhythm Breast Exam: Deferred Gastrointestinal: Distended, No Organomegaly, Non Tender, No Pulsatile Mass, Normal Bowel Sounds, Soft Genitalia: Deferred Pelvic: Deferred Rectal: Deferred Extremities: No calf tenderness, Normal capillary refill, Normal inspection, Normal range of motion, Non-tender, No pedal edema Neurologic: Alert, foxing closer II-XII nml as Tested, No Motor Deficits, Normal Affect, Normal Mood, No Sensory Deficits Cerebellar Function: NOT DONE Reflexes: NOT DONE Skin: Dry, Normal Color, Warm Lymphatic: No Adenopathy Was a procedure done? Was a procedure done?: No GI differential Dx Differential Diagnosis: Bowel Obstruction, Constipation, Diverticular disease, Electrolyte Imbalance, Impaction X-Ray, Labs, Meds, VS Vital Signs Date Time Temp Pulse Resp B/P (MAP) Pulse Ox O2 Delivery O2 Flow Rate FiO2 06/20/24 12:22 98.4 89 18 121/89 (100) 92 98.4 06/20/24 10:47 91 18 98 Room Air* 0 21 06/20/24 10:44 91 18 98 Room Air 06/20/24 10:44 97.7 91 18 152/89 (110) 98 97.7 06/20/24 10:23 98.8 73 17 129/83 (98) 96 Lab Test 06/20/24 11:07 06/20/24 10:20 Range/Units Sodium Level 128 L 136-145 mmol/L Potassium Level 3.9 3.5-5.1 mmol/L Chloride Level 94 L 98-107 mmol/L Carbon Dioxide Level 28 20-31 mmol/L Anion Gap 6 5-15 Blood Urea Nitrogen 10 9-23 mg/dL Creatinine 0.60 0.550-1.02 mg/dL Glomerular Filtration Rate Calc 97 >90 mL/min BUN/Creatinine Ratio 16.7 10.0-20.0 Serum Glucose 113 H 74-106 mg/dL Calcium Level 9.9 8.7-10.4 mg/dL Urine Color Colorless Yellow Urine Clarity Clear Clear Urine pH 7.0 5.0-9.0 Urine Specific [place] 1.008 1.001-1.035 Urine Protein Negative Negative Urine Ketones Negative Negative Urine Blood Negative Negative /uL Urine Nitrite Negative Negative Urine Bilirubin Negative Negative Urine Urobilinogen Normal Negative mg/dL Urine Leukocyte Esterase Negative Negative /uL Urine RBC 2 0 - 4 /hpf Urine WBC None seen 0 - 5 /hpf Urine Squamous Epithelial Cells Few <5 /hpf Urine Bacteria Few H None Seen /hpf Urine Glucose Trace Normal mg/dL On my initial examination, patient stated feeling well, denied any significant abdominal pain nausea or vomiting, she just complained about bloatedness and inability to have a bowel movement. We will order a BMP and a KUB. We will continue to reassess. Patient sodium was 128, asymptomatic mild hyponatremia, KUB demonstrated large stool burden, patient stated that she did not have any pain, just feel bloated, who prescribed her lactulose 30 mL daily for the next three days. We counseled the patient on increasing water intake, exercise, eating more vegetables, increasing fiber intake, she verbalized understanding and agreed with the plan. Images Reviewed?: Images reviewed and evaluated by me Time of 1ST Reevaluation: 11:03 Reevaluation 1ST: Unchanged Time of 2ND Reevaluation: 12:01 Reevaluation 2ND: Improved Patient Education/Counseling: Diagnosis, Treatment Family Education/Counseling: No Family Present Departure 1 Departure Time of Disposition: 12:28 Impression: Primary Impression: Constipation Additional Impression: Hyponatremia Disposition: HOME / SELF CARE / HOMELESS Condition: Stable e-Prescriptions Lactulose (Lactulose) 10 Gm/15 Ml Emiliana 20 GM PO DAILY for 3 Days, #60 ML 1 Refill Prov: PAULETTE JONES RESIDENT 06/20/24 Critical Care Note Critical Care Time?: No Stability Stability form required: No Heart Score Heart Score: Heart Score Response (Comments) Value History N/A 0 EKG N/A 0 Age N/A 0 Risk Factors N/A 0 Troponin N/A 0 Total 0 PAULETTE JONES RESIDENT Jun 20, 2024 11:09
[2024-06-20 11:14] LABS: Urine WBC None Seen /hpf (0 - 5)
[2024-06-20 11:34] LABS: Urine Bacteria FEW /hpf (None Seen); Urine Blood Negative /uL (Negative); Urine Clarity Clear (Clear); Urine Color Colorless (Yellow); Urine Protein, UAD Negative (Negative); Urine Specific Gravity 1.008 (1.001-1.035); Urine Urobilinogen Normal (Negative)
[2024-06-20 11:38] LABS: Chloride 94 mmol/L (98-107); Potassium 3.9 mmol/L (3.5-5.1); Sodium 128 mmol/L (136-145)
[2024-06-20 11:39] LABS: Anion Gap 6 (5-15); Carbon Dioxide 28 mmol/L (20-31)
[2024-06-20 11:40] LABS: Calcium 9.9 mg/dL (8.7-10.4)
--- NOTE | 2024-06-20 11:40 | DVH ---
Date: 06/20/2024 11:00 AM Examination: XY KUB ABDOMEN SINGLE VIEW History: constipation Comparison: None TECHNIQUE: Frontal views of the abdomen was obtained. FINDINGS: Bowel gas pattern is unremarkable. Large stool burden. The lung bases are unremarkable. No acute osseous abnormality identified. IMPRESSION: Nonobstructive bowel gas pattern. Large stool burden.
[2024-06-20 11:44] LABS: BUN/Creatinine Ratio 16.7 (10.0-20.0); Blood Urea Nitrogen 10 mg/dL (9-23); Glucose 113 mg/dL (74-106)
[2024-06-20 12:22] VITALS: BP 121/89; PULSE 89; RESP 18; TEMP 98.4; O2SAT 92
[2024-06-20] MEDS ORDERED: LACT10SO3 PO (12:28)
== END 2024-06-20 12:35 | disposition home or self-care (01) ==
LOC: ER 10:07
DX: K59.00 Constipation, unspecified (principal); E87.1 Hypo-osmolality and hyponatremia; I10 Essential (primary) hypertension; E78.5 Hyperlipidemia, unspecified; F41.9 Anxiety disorder, unspecified; F32.A Depression, unspecified; Z88.5 Allergy status to narcotic agent; Z79.52 Long term (current) use of systemic steroids; Z79.899 Other long term (current) drug therapy
CPT/HCPCS: 36415; 74018; 80048; 81001